=== PATIENT | female | born 1950 | race Two or more races ===

== ENCOUNTER 2016-10-31 14:00 | Outpatient (RCR) | payer OTHER ==
[~2016-10-31 14:00] MED LIST: ASPIR-LOW81 MG ORAL; BENTYL10 MG ORAL; DIOVAN80 MG ORAL; VALIUM5 MG ORAL
== END 2016-11-07 | disposition home or self-care (01) ==
LOC: PTY 14:00
DX: M54.40 Lumbago with sciatica, unspecified side (principal); G89.29 Other chronic pain
CPT/HCPCS: 97110; 97140; 97163; G0283

== ENCOUNTER 2016-11-10 12:00 | Outpatient (RCR) | payer OTHER | END 2016-12-07 | disposition home or self-care (01) | LOC: PTY 12:00 | DX: M54.40 Lumbago with sciatica, unspecified side (principal); G89.29 Other chronic pain | CPT/HCPCS: 97035; 97110; 97140; G0283 ==

== ENCOUNTER 2016-12-09 13:10 | Outpatient (RCR) | payer OTHER | END 2017-01-07 | disposition home or self-care (01) | LOC: PTY 13:10 | DX: M54.40 Lumbago with sciatica, unspecified side (principal); G89.29 Other chronic pain | CPT/HCPCS: 97035; 97110; 97140; G0283 ==